=== PATIENT | male | born 1980 | race Caucasian/White ===

== ENCOUNTER 2021-10-27 12:11 | Outpatient (CLI) | payer BC, SELFPAY ==
[2021-10-27 21:59] LABS: Albumin* 4.8 g/dL (3.3-5.0)
[2021-10-27 22:02] LABS: Alanine Aminotransferase* 82 U/L (4-50); Alkaline Phosphatase* 89 U/L (40-150); Aspartate Amino Transferase* 48 U/L (12-35); Bilirubin Direct* 0.1 mg/dL (0.0-0.5); Bilirubin Total* 0.6 mg/dL (0.1-1.5); Total Protein* 7.9 g/dL (6.0-8.3)
== END 2021-10-27 12:12 | disposition home or self-care (01) ==
LOC: LKVREF 12:14
PROVIDERS: PCP Physician Assistant Medical; Visit Provider Physician Assistant Medical
DX: R79.89 Other specified abnormal findings of blood chemistry (principal); I10 Essential (primary) hypertension; E66.9 Obesity, unspecified
CPT/HCPCS: 80076

== ENCOUNTER 2022-10-04 13:00 | Outpatient (CLI) | payer BC, SELFPAY | END 2022-10-04 13:01 | disposition home or self-care (01) | PROVIDERS: PCP Physician Assistant Medical; Visit Provider Physician Assistant Medical | DX: Z00.00 Encounter for general adult medical examination without abnormal findings (principal); I10 Essential (primary) hypertension; R73.01 Impaired fasting glucose; R79.89 Other specified abnormal findings of blood chemistry; E66.9 Obesity, unspecified | CPT/HCPCS: 80053; 80061 ==

== ENCOUNTER 2022-11-27 07:00 | Outpatient (CLI) | payer BC, SELFPAY ==
--- NOTE | 2022-11-27 07:15 | CRLHL7_ITS ---
For Patients: As a result of the Century Cures Act, medical imaging exams and procedure reports are released immediately into your electronic medical record. You may view this report before your referring provider. If you have questions, please contact your health care provider. INDICATION: Elevated LFTs COMPARISON: none TECHNIQUE: Real time whalen scale imaging and color Doppler analysis was performed of the right upper quadrant. FINDINGS: The patient`s liver measures 17.1 cm and has diffusely increased echogenicity. There is a normal appearance of the hepatic IVC and proximal abdominal aorta. There is no evidence of ascites. The gallbladder is of normal size and there is no evidence of intraluminal stones or sludge. The gallbladder wall measures 2.8 mm in thickness. The common bile duct is of normal size and measures 4.6 mm in diameter at the level of the sav hepatis. The visualized pancreas appears normal. There is no evidence of a stone or hydronephrosis within the right kidney. The right kidney measures 11.0 cm in length. IMPRESSION: Moderate diffuse hepatic steatosis. Remainder unremarkable. Dictated by Jono Correia MD @ 11/27/2022 8:39:20 AM (Electronically Signed)
== END 2022-11-27 07:01 | disposition home or self-care (01) ==
LOC: US 07:01
PROVIDERS: PCP Physician Assistant Medical; Visit Provider Physician Assistant Medical
DX: R79.89 Other specified abnormal findings of blood chemistry (principal); K76.0 Fatty (change of) liver, not elsewhere classified
CPT/HCPCS: 76705

== ENCOUNTER 2023-01-09 19:34 | Outpatient (CLI) | payer BC, SELFPAY ==
--- NOTE | 2023-01-16 12:33 | W.PM.SLEEP ---
Sleep Study Details Details Interpreting Provider: Daryl Date of Sleep Study: 01/09/23 Sleep Study Details: STUDY TYPE:? Home unattended ? BMI:? 39.9 ORDERING PROVIDER:Curt Peacock INDICATION:? Concerns about sleep apnea ? SLEEP SUMMARY:? Monitor time 500 minutes RESPIRATORY SUMMARY:? AHI 63.5, supine 75.1, left lateral 15.6, right lateral 64 Low oxygen 61 71.3% of the study oxygenation was less than 90% Snoring 25.7% PERIODIC LIMB MOVEMENTS OF SLEEP:? Not recorded during home study CARDIAC:? Range 59-104, mean 75.2 IMPRESSION:? Severe obstructive sleep apnea with significant hypo oxygenation but almost no central apnea RECOMMENDATION: Would recommend an in-lab titration. Alternative would be AutoSet CPAP at home with close follow-up. Once effective therapy is established would recommend an overnight oximetry study. Weight loss is also recommended
== END 2023-01-09 19:35 | disposition home or self-care (01) ==
LOC: SLEEP 19:34
PROVIDERS: PCP Physician Assistant Medical; Visit Provider Physician Assistant Medical
DX: G47.33 Obstructive sleep apnea (adult) (pediatric) (principal)
CPT/HCPCS: 95806

== ENCOUNTER 2024-02-27 12:08 | Outpatient (CLI) | payer BC, SELFPAY | END 2024-02-27 12:09 | disposition home or self-care (01) | PROVIDERS: PCP Physician Assistant Medical; Visit Provider Physician Assistant Medical | DX: I10 Essential (primary) hypertension (principal); R79.89 Other specified abnormal findings of blood chemistry; R73.01 Impaired fasting glucose; E66.9 Obesity, unspecified; Z13.0 Encounter for screening for diseases of the blood and blood-forming organs and certain disorders involving the immune mechanism; Z13.1 Encounter for screening for diabetes mellitus | CPT/HCPCS: 80053; 80061; 84443 ==